=== PATIENT | female | born 1985 | race Caucasian/White ===

== ENCOUNTER 2021-02-18 11:18 | Emergency (ER) | payer BC, SELFPAY ==
[2021-02-18 11:31] VITALS: BP 99/56; PULSE 70; RESP 18; TEMP 36.9; O2SAT 99; BMI 25.9
--- NOTE | 2021-02-18 12:11 | ED.URI ---
HPI - URI/Sore Throat General Chief Complaint: Upper Respiratory Symptoms <Wilmer Epperson NP - Last Filed: 02/28/21 20:34> Stated Complaint: covid symptoms <Wilmer Epperson NP - Last Filed: 02/28/21 20:34> Time Seen by Provider: 02/18/21 12:11 <Wilmer Epperson NP - Last Filed: 02/28/21 20:34> Source: patient <Wilmer Epperson NP - Last Filed: 02/28/21 20:34> Mode of arrival: ambulatory <Wilmer Epperson NP - Last Filed: 02/28/21 20:34> Limitations: no limitations <Wilmer Epperson NP - Last Filed: 02/28/21 20:34> History of Present Illness HPI Narrative: Rhino/congestion visiting from [place] multiple family members with similar symptoms requesting COVID test. No chest pain shortness of breath. <Wilmer Epperson NP - Last Filed: 02/28/21 20:34> MD elicited complaint: nasal congestion <Wilmer Epperson NP - Last Filed: 02/28/21 20:34> Onset (ago): day(s) <Wilmer Epperson NP - Last Filed: 02/28/21 20:34> Severity: mild <Wilmer Epeprson NP - Last Filed: 02/28/21 20:34> Context: sick contacts <Wilmer Epperson NP - Last Filed: 02/28/21 20:34> Treatments prior to arrival: none <Wilmer Epperson NP - Last Filed: 02/28/21 20:34> Related Data Home Medications: Previous Rx's Medication Instructions Recorded ibuprofen 600 mg PO Q6H PRN #20 tab 02/22/21 loperamide [Imodium A-D] 2 mg PO Q4H PRN #14 cap 02/22/21 ondansetron HCl [Zofran] 4 mg PO Q6H PRN #10 tab 02/22/21 <Wilmer Epperson NP - Last Filed: 02/28/21 20:34> Allergies/Adverse Reactions: Allergies Allergy/AdvReac Type Severity Reaction Status Date / Time No Known Allergies Allergy Verified 02/18/21 12:12 <Wilmer Epperson NP - Last Filed: 02/28/21 20:34> Review of Systems Review of Systems: Constitutional: No Weight loss, No Fever, No Chills, No Night Sweats, No Fatigue, No Malaise ENT/Mouth: No Hearing loss, No Ear Pain, No Nasal Congestion, No Sinus Pain, No Hoarseness, No sore throat, + Rhinorrhea, No Swallowing Difficulty Eyes: No Eye Pain, No Swelling, No Redness, No Foreign Body, No Discharge, No Vision Changes Cardiovascular: No Chest Pain, No SOB, No Dyspnea on Exertion, No Orthopnea, No Edema, No Palpitations Respiratory: No Cough, No Sputum, No Wheezing, No Smoke Exposure, No Dyspnea Gastrointestinal: No Nausea, No Vomiting, No Diarrhea, No Constipation, No abdominal Pain, No Hematochezia, No Melena Genitourinary: no irregular bleeding, No Dysuria, No Urinary Frequency, No Hematuria, No Urinary Incontinence, No Urgency, No Flank Pain, No Urinary Flow Changes, No Hesitancy Musculoskeletal: No joint pain, No Myalgias, No Joint Swelling Skin: No Skin Lesions, No rash Neuro: No Weakness, No Numbness, No Paresthesias, No Loss of Consciousness, No Dizziness, No Headache Psych: No Social Issues Heme/Lymph: No Bruising, No Bleeding,No Lymphadenopathy Endocrine: No Polyuria, No Polydipsia, No Temperature Intolerance <Wilmer Epperson NP - Last Filed: 02/28/21 20:34> Yes all other systems are reviewed and are negative <Wilmer Epperson NP - Last Filed: 02/28/21 20:34> PMF Social History Social History: Social History Advance Directives: No Advance Directives Information Provided: No <Wilmer Epperson NP - Last Filed: 02/28/21 20:34> Physical Exam Vital Signs: Vital Signs: Last Vital Signs Temp 98.4 F 02/18/21 11:31 Pulse 70 02/18/21 11:31 Resp 18 02/18/21 11:31 BP 99/56 L 02/18/21 11:31 Pulse Ox 99 02/18/21 11:31 Body Mass Index 25.9 Reviewed <Wilmer Epperson NP - Last Filed: 02/28/21 20:34> Vital Signs: Last Vital Signs Temp 98.4 F 02/18/21 11:31 Pulse 70 02/18/21 11:31 Resp 18 02/18/21 11:31 BP 99/56 L 02/18/21 11:31 Pulse Ox 99 02/18/21 11:31 Body Mass Index 25.9 <Jan Robledo MD - Last Filed: 03/12/21 13:50> Const: General: cooperative and healthy appearing; No acute distress or intoxicated appearing <[facility] CELESTE Epperson - Last Filed: 02/28/21 20:34> Nutritional Appearance: average body habitus <[facility] Zeenat [employer] COORDINATOR - Last Filed: 02/28/21 20:34> Orientation/consciousness: patient oriented x3 <[facility] Zeenat - Last Filed: 02/28/21 20:34> HENMT: Head: Yes normal to inspection <[facility] CELESTE Epperson - Last Filed: 02/28/21 20:34> Ears: hearing grossly normal bilaterally <[facility] Zeenat - Last Filed: 02/28/21 20:34> Eyes: General: appearance normal, both eyes and all related structures <[facility] CELESTE Epperson - Last Filed: 02/28/21 20:34> Visual Mo: normal visual mo by confrontation <[facility] CELESTE Epperson - Last Filed: 02/28/21 20:34> Neck: Neck: Yes normal visual inspection, No positive Brudzinski's sign, No positive Kernig's sign and No tender <[facility] CELESTE Epperson - Last Filed: 02/28/21 20:34> Thyroid: Thyroid normal <[facility] CELESTE Epperson - Last Filed: 02/28/21 20:34> Chest: Chest palpation & inspection: normal inspection of the chest <[facility] CELESTE Epperson - Last Filed: 02/28/21 20:34> Resp: Effort & Inspection: normal respiratory effort <[facility] CELESTE Epperson - Last Filed: 02/28/21 20:34> Auscultation: clear to auscultation bilaterally <[facility] CELESTE Epperson - Last Filed: 02/28/21 20:34> Cardio: Jugular venous distension: no JVD <[facility] CELESTE Epperson - Last Filed: 02/28/21 20:34> Rhythm: regular rhythm <Wilmer Epperson NP - Last Filed: 02/28/21 20:34> Heart sounds: S1 normal heart sound present and S2 normal heart sound present <Wilmer Epperson NP - Last Filed: 02/28/21 20:34> Skin: General skin exam: no rashes or lesions noted <Wilmer Epperson NP - Last Filed: 02/28/21 20:34> Neuro: General: patient oriented x3 <Wilmer Epperson NP - Last Filed: 02/28/21 20:34> Extrem: General: Yes normal to inspection <Wilmer Epperson NP - Last Filed: 02/28/21 20:34> Course Course Course Narrative: I have reviewed the chart <Jan Robledo MD - Last Filed: 03/12/21 13:50> MDM - URI/Sore Throat Lab Data Labs: Lab Results 02/18/21 Range/Units 12:18 Coronavirus (PCR) POSITIVE A (Negative) Influenza Type A (PCR) NEGATIVE (Negative) Influenza Type B (PCR) NEGATIVE (Negative) RSV RNA Qual (PCR) NEGATIVE (Negative) <Wilmer Epperson NP - Last Filed: 02/28/21 20:34> Lab Results 02/18/21 Range/Units 12:18 Coronavirus (PCR) POSITIVE A (Negative) Influenza Type A (PCR) NEGATIVE (Negative) Influenza Type B (PCR) NEGATIVE (Negative) RSV RNA Qual (PCR) NEGATIVE (Negative) <Jan Robledo MD - Last Filed: 03/12/21 13:50> Discharge Plan Discharge Clinical Impression: COVID-19 <Wilmer Epperson NP - Last Filed: 02/28/21 20:34> Patient Disposition: Elopement <Wilmer Epperson NP - Last Filed: 02/28/21 20:34> Prescriptions: No Action loperamide [Imodium A-D] 2 mg capsule 2 mg PO Q4H PRN (Reason: loose stool) Qty: 14 RF: 0 ondansetron HCl [Zofran] 4 mg tablet 4 mg PO Q6H PRN (Reason: nausea and vomiting) Qty: 10 RF: 0 ibuprofen 600 mg tablet 600 mg PO Q6H PRN (Reason: fever or pain) Qty: 20 RF: 0 <Wilmer Epperson NP - Last Filed: 02/28/21 20:34> Interventions: ED Discharge Assessment Last Done: 02/18/21 12:50 <Wilmer Epperson NP - Last Filed: 02/28/21 20:34> Discharge Date/Time: 02/18/21 12:50 <Wilmer Epperson NP - Last Filed: 02/28/21 20:34>
[2021-02-18 13:07] LABS: Influenza A PCR NEGATIVE (Negative); Influenza B PCR NEGATIVE (Negative); Resp Syncy Virus RNA Qual PCR NEGATIVE (Negative); SARS COV2 PCR INHOUSE POSITIVE (Negative)
== END 2021-02-18 12:50 | disposition left against medical advice (07) ==
PROVIDERS: Nurse Practitioner Primary Care; Emergency Provider Emergency Medicine
DX: U07.1 COVID-19 (principal)
CPT/HCPCS: 0241U; 36415; 99283

== ENCOUNTER 2021-02-22 12:41 | Emergency (ER) | payer BC, SELFPAY ==
--- NOTE | ~2021-02-22 | XR_ITS ---
EXAMINATION: XR CHEST CLINICAL INFORMATION: Cough COMPARISON: None TECHNIQUE: Frontal view of the chest was obtained. FINDINGS: No significant abnormality is noted involving the heart, lungs, mediastinum, bony thorax or soft tissues. XR/XR chest 1V IMPRESSION: Unremarkable chest examination.
[2021-02-22 13:08] VITALS: BP 114/56; PULSE 85; RESP 20; TEMP 37.6; O2SAT 99; BMI 25.8
--- NOTE | 2021-02-22 13:38 | ED_ITS ---
HPI - General Adult General Chief complaint: Upper Respiratory Symptoms <SUNDAR Christiansen Last Filed: 02/27/21 10:15> Stated complaint: COVID POS SYMPTONS <SUNDAR Christiansen Last Filed: 02/27/21 10:15> Time Seen by Provider: 02/22/21 13:38 <SUNDAR Christiansen Last Filed: 02/27/21 10:15> History of Present Illness HPI narrative: Patient tested positive for COVID 4 days ago and has worsening symptoms and now has some nausea with intermittent vomiting, diarrhea, worsening cough, body aches and fatigue, no shortness of breath, no fever no chills <SUNDAR Christiansen Last Filed: 02/27/21 10:15> Related Data Home medications: Previous Rx's Medication Instructions Recorded ibuprofen 600 mg PO Q6H PRN #20 tab 02/22/21 loperamide [Imodium A-D] 2 mg PO Q4H PRN #14 cap 02/22/21 ondansetron HCl [Zofran] 4 mg PO Q6H PRN #10 tab 02/22/21 <SUNDAR Christiansen Last Filed: 02/27/21 10:15> Allergies/adverse reactions: Allergies Allergy/AdvReac Type Severity Reaction Status Date / Time No Known Allergies Allergy Verified 02/18/21 12:12 <SUNDAR Christiansen Last Filed: 02/27/21 10:15> Review of Systems Review of Systems: Positive for nausea, vomiting diarrhea body aches cough Negatives are no fever no chills no dizziness no weakness no confusion no headache no neck pain no sore throat no difficulty breathing or swallowing no chest pain no shortness of breath no palpitations no abdominal pain no skin rash no extremity swelling no calf pain or swelling no numbness <SUNDAR Christiansen Last Filed: 02/27/21 10:15> REPLACED BY [facility] Past Medical History Source: nursing notes reviewed <SUNDAR Christiansen Last Filed: 02/27/21 10:15> Social History Social History: Social History Advance Directives: No Advance Directives Information Provided: No <SUNDAR Christiansen Last Filed: 02/27/21 10:15> Physical Exam Vital Signs: Vital Signs: Last Vital Signs Temp 99.6 F 02/22/21 13:08 Pulse 85 02/22/21 13:08 Resp 20 02/22/21 13:08 BP 114/56 L 02/22/21 13:08 Pulse Ox 99 02/22/21 13:08 Body Mass Index 25.8 <SUNDAR Christiansen - Last Filed: 02/27/21 10:15> Vital Signs: Last Vital Signs Temp 99.6 F 02/22/21 13:08 Pulse 85 02/22/21 13:08 Resp 20 02/22/21 13:08 BP 114/56 L 02/22/21 13:08 Pulse Ox 99 02/22/21 13:08 Body Mass Index 25.8 <Jan Robledo MD - Last Filed: 03/12/21 13:43> General appearance is no acute distress, and cooperative The eyes are clear no redness or discharge The pharynx is clear mucous membranes are moist Neck is supple Chest is clear to auscultation bilaterally with symmetrical breath sounds Heart no murmur Abdomen soft nontender Extremities full range of motion x4 no calf tenderness or swelling Skin no rash Neuro no focal deficits <SUNDAR Christiansen - Last Filed: 02/27/21 10:15> Course Course Course Narrative: COVID positive patient with negative chest x-ray and well-appearing and tolerating p.o. his discharged with symptomatic relief medications <SUNDAR Christiansen - Last Filed: 02/27/21 10:15> I have reviewed the chart <Jan Robledo MD - Last Filed: 03/12/21 13:43> Discharge Plan Discharge Clinical Impression: COVID-19 <SUNDAR Christiansen - Last Filed: 02/27/21 10:15> Patient Disposition: Home, Self-Care <SUNDAR Christiansen - Last Filed: 02/27/21 10:15> Additional Instructions: Chest x-ray was normal as are vital signs I wrote some medications to help with the symptoms Return to ER any time for any worse condition or any concerns <SUNDAR Christiansen - Last Filed: 02/27/21 10:15> Prescriptions: New loperamide [Imodium A-D] 2 mg capsule 2 mg PO Q4H PRN (Reason: loose stool) Qty: 14 RF: 0 ondansetron HCl [Zofran] 4 mg tablet 4 mg PO Q6H PRN (Reason: nausea and vomiting) Qty: 10 RF: 0 ibuprofen 600 mg tablet 600 mg PO Q6H PRN (Reason: fever or pain) Qty: 20 RF: 0 <SUNDAR Christiansen - Last Filed: 02/27/21 10:15> Interventions: ED Discharge Assessment Last Done: 02/22/21 14:44 <SUNDAR Christiansen - Last Filed: 02/27/21 10:15> Discharge Date/Time: 02/22/21 14:44 <SUNDAR Christiansen - Last Filed: 02/27/21 10:15>
--- NOTE | 2021-02-22 14:41 | PC.NURSE ---
NO NAUSEA OR VOMITING IN ED, GOOD SKIN TURGOR, NO DIFF BREATHING.
== END 2021-02-22 14:44 | disposition home or self-care (01) ==
PROVIDERS: Emergency Provider Emergency Medicine
DX: U07.1 COVID-19 (principal)
CPT/HCPCS: 71045; 99283